=== PATIENT | male | born 1970 | race Caucasian/White ===

== ENCOUNTER → 2017-04-05 | Outpatient (CLI) | payer BC ==
--- NOTE | 2017-04-05 13:42 | XR ---
EXAMINATION TYPE: XR chest 2V DATE OF EXAM: 04/05/2017 COMPARISON: None HISTORY: 46-year-old male with persistent cough TECHNIQUE: Frontal and lateral views FINDINGS: Heart normal size. Aorta and pulmonary vasculature within normal limits. Mild interstitial prominence main part related to technique. No consolidation or pleural effusion. IMPRESSION: Mild interstitial prominence may in part relate to technique. Correlate to exclude bronchitis or asth ma. Otherwise, no acute process seen.
== END | disposition home or self-care (01) ==
LOC: RADXRYALE 12:49
PROVIDERS: ATTEND Internal Medicine
DX: R91.8 Other nonspecific abnormal finding of lung field (principal)
CPT/HCPCS: 71046

== ENCOUNTER → 2023-02-17 | Outpatient (CLI) | payer OTHER ==
--- NOTE | 2023-02-17 11:17 | XR ---
EXAMINATION TYPE: XR knee complete RT DATE OF EXAM: 02/17/2023 CLINICAL HISTORY: Sprain. TECHNIQUE: Three views of the right knee are obtained. COMPARISON: None. FINDINGS: There is no acute fracture/dislocation evident in the right knee. [id number] tricomp artment joint space loss with mild spurring. The overlying soft tissue appears unremarkable. IMPRESSION: As above.
== END | disposition home or self-care (01) ==
LOC: RADXRMAIN 10:55
PROVIDERS: ATTEND Emergency Medicine
DX: S83.91XA Sprain of unspecified site of right knee, initial encounter (principal)

== ENCOUNTER → 2023-03-19 | Outpatient (CLI) | payer OTHER ==
--- NOTE | 2023-03-19 14:42 | MR ---
EXAMINATION TYPE: MR knee RT wo con DATE OF EXAM: 03/19/2023 COMPARISON: Right knee x-ray February 17, 2023 HISTORY: Right knee pain and locking, S/P fall one month earlier. History of prior surgery per patien t TECHNIQUE: Multiplanar, multisequence images of the knee is performed without IV contrast. FINDINGS: MEDIAL MENISCUS: Slightly oblique signal posterior horn does not definitively extend to articular bettina face. LATERAL MENISCUS: Anterior and posterior horns are intact without tear. CRUCIATE LIGAMENTS: The anterior and posterior cruciate ligaments are intact and unremarkable. COLLATERAL LIGAMENTS: The medial collateral ligament and lateral collateral ligament complex are inta ct. Mild fluid signal surrounds the medial collateral ligament. EXTENSOR MECHANISM: Visualized quadriceps and patellar tendons are intact. EFFUSION: Small to borderline moderate size suprapatellar joint effusion. POPLITEAL CYST: Small size popliteal/mtz cyst. TRICOMPARTMENT SPACES: Mild to moderate narrowing with mild spurring most prominent patellofemoral co mpartment. CARTILAGE: Tricompartmental articular cartilage is preserved. BONE MARROW SIGNAL: No focal abnormal marrow signal is appreciated. OTHER: No additional significant abnormality is appreciated. IMPRESSION: 1. Intrasubstance tear posterior horn medial meniscus. No full-thickness meniscal tear. 2. Small to borderline moderate sized suprapatellar joint effusion. 3. Mild MCL sprain injury. 4. Small popliteal cyst.
== END | disposition home or self-care (01) ==
LOC: RADMRIMAIN 10:41
PROVIDERS: ATTEND Emergency Medicine
DX: S83.91XA Sprain of unspecified site of right knee, initial encounter (principal); S83.241A Other tear of medial meniscus, current injury, right knee, initial encounter; S83.411A Sprain of medial collateral ligament of right knee, initial encounter; M71.21 Synovial cyst of popliteal space [Baker], right knee; M25.461 Effusion, right knee